=== PATIENT | female | born 1970 | race Caucasian/White ===

== ENCOUNTER → 2017-10-30 | Outpatient (CLI) | payer OTHER ==
[~2017-10-30] MED LIST: HYDACE5 PO; IBUP600 PO; Nolvadex20 MG; OMEP20ER PO; OXYACE5T PO
[2017-11-01 12:10] LABS: HPV Genotype 16 Not Detected (NOTDET); HPV Genotype 18 Not Detected (NOTDET)
[2017-11-01 13:33] LABS: HPV High Risk Other Not Detected (NOTDET)
== END | disposition home or self-care (01) ==
LOC: LAB 11:43 → LAB SHORT 11:43
PROVIDERS: Obstetrics & Gynecology
DX: Z01.419 Encounter for gynecological examination (general) (routine) without abnormal findings (principal)
CPT/HCPCS: 87624; G0123

== ENCOUNTER → 2017-11-28 | Outpatient (CLI) | payer OTHER | LOC: LAB SHORT 13:05 → PLD 13:05 | DX: N95.0 Postmenopausal bleeding (principal) | CPT/HCPCS: 88305 ==

== ENCOUNTER → 2019-03-17 | Outpatient (CLI) | payer BC ==
[2019-03-18 13:07] LABS: HPV 16 Negative (Negative); HPV 18 Negative (Negative); HPV OTHER HR TYPES Negative (Negative)
== END | disposition home or self-care (01) ==
LOC: LAB 13:01 → LAB SHORT 13:01
PROVIDERS: Obstetrics & Gynecology
DX: Z01.419 Encounter for gynecological examination (general) (routine) without abnormal findings (principal)
CPT/HCPCS: 87624; G0123

== ENCOUNTER 2024-08-21 06:07 | Day surgery (SDC) | payer BC ==
[~2024-08-21] VITALS: Ht 167.6 cm; Wt 87.5 kg
[~2024-08-21 06:07] MED LIST changes: +ALPRAZOLAM0.5 M1 PO; +BRINTELLIX20 MG PO; +FARXIGA10 MG PO; +Lactated Ringer's 1,000 ML IV ONE; +RYBELSUS3 MG PO; +ZOLPIDEM TARTRA10 MG PO
[2024-08-21] MEDS ORDERED: CeFAZolin Sodium 2,000 MG VIAL ONE (06:14)
[2024-08-21] MEDS ORDERED: NS 0 ML IV ONE (06:14)
[2024-08-21] MEDS ORDERED: OZEMPIC2 MG/0.75 SQ (06:27)
[2024-08-21] MEDS ORDERED: Lactated Ringer's 1,000 ML IV ONE (06:39)
[2024-08-21] MEDS ORDERED: Bupivacaine 0.5% W/EPI 1:200000 SDV 30 ML Vial ONE (06:44)
[2024-08-21] MEDS ORDERED: propofoL 20 ML IV ONE ×2 (07:05→07:41)
[2024-08-21] MEDS ORDERED: FentaNYL Citrate 50 MCG/ML 2 ML Injection ONE (07:05)
[2024-08-21] MEDS ORDERED: Rocuronium Bromide 10 MG/ML 5ML Injection IV ONE (07:09)
[2024-08-21] MEDS ORDERED: Lidocaine 1%-Epineph 1:100000 20 ML MDV ONE (07:11)
[2024-08-21] MEDS ORDERED: Ondansetron HCl 2 MG / ML 2ML Vial ONE (07:33)
[2024-08-21] MEDS ORDERED: Dexamethasone Sod Phos 10 MG/ML 1ML VIAL ONE (07:33)
[2024-08-21] MEDS ORDERED: Sugammadex Sodium 200 MG/2ML SDV (100 MG/ML) ONE ×2 (07:34→08:01)
[2024-08-21] MEDS ORDERED: Ketorolac Tromethamine 30mg Vial ONE (07:34)
[2024-08-21 08:27] VITALS: BP 124/80
--- NOTE | 2024-08-21 08:56 | NUR ---
08/21/24 0856 Alem Juares/Mehdi INSTRUCTIONS GIVEN TO PT & PT'S , UNDERSTANDING VERBALIZED. PT BELONGINGS RETURNED TO PT. PT TO BE DRIVEN HOME BY IN PRIVATE VEHICLE. STEADY GAIT NOTED UPON TRANSFER FROM RECLINER TO & TO VEHICLE. PT CONTINUES TO DENY PAIN/NAUSEA, VSS, ON RA. NO VISIBLE SIGNS OF DISTRESS NOTED.
== END 2024-08-21 08:57 | disposition home or self-care (01) ==
LOC: ORSCSDS 06:07
PROVIDERS: Podiatrist Foot & Ankle Surgery
PROC: 0QBN0ZZ Excision of Right Metatarsal, Open Approach (ICD-10-PCS; principal; 2024-08-21 07:30)
DX: M77.41 Metatarsalgia, right foot (principal); M92.71 Juvenile osteochondrosis of metatarsus, right foot; E11.9 Type 2 diabetes mellitus without complications; Z79.899 Other long term (current) drug therapy; Z85.3 Personal history of malignant neoplasm of breast; Z79.85 Long-term (current) use of injectable non-insulin antidiabetic drugs
CPT/HCPCS: 82947; J0690; J1100; J1885; J2405; J2704; J3010; J7120